=== PATIENT | female | born 1970 | race Caucasian/White ===

== ENCOUNTER → 2016-10-02 | Day surgery (SDC) | payer OTHER ==
[~2016-10-02] MED LIST: BACLOFEN 10MG T10 MG PO; CERTAGEN1 EACH PO; COLACE100 MG PO; FEOSOL325 MG PO; HCTZ12.5 MG PO; LIPITOR 10MG TA10 MG PO; MOBIC7.5 MG PO; MOTRIN600 MG PO; PERCOCET 5/3251 TAB PO; SYNTHROID112 MCG PO; TRAZODONE 100M100 MG PO; TRILEPTAL150 MG PO; XARELTO10 MG PO
[2016-10-02 06:27] LABS: CREATININE 0.7 mg/dL (0.5-1.0); POTASSIUM 3.3 mmol/L (3.5-5.1)
== END | disposition home or self-care (01) ==
LOC: FAS 05:35
PROVIDERS: Orthopaedic Surgery
DX: M76.892 Other specified enthesopathies of left lower limb, excluding foot (principal); I10 Essential (primary) hypertension; E78.00 Pure hypercholesterolemia, unspecified; F32.9 Major depressive disorder, single episode, unspecified; F41.9 Anxiety disorder, unspecified; K21.9 Gastro-esophageal reflux disease without esophagitis; E03.9 Hypothyroidism, unspecified; F17.210 Nicotine dependence, cigarettes, uncomplicated; Z90.49 Acquired absence of other specified parts of digestive tract; Z90.710 Acquired absence of both cervix and uterus; Z79.1 Long term (current) use of non-steroidal anti-inflammatories (NSAID); Z79.82 Long term (current) use of aspirin; Z79.899 Other long term (current) drug therapy; Z98.890 Other specified postprocedural states
CPT/HCPCS: 36415; 80048; 97162; 97530-GP; J1100; J1170; J2270; J2704; J2795; J3010